=== PATIENT | female | born 1950 | race Caucasian/White ===

== ENCOUNTER → 2020-06-22 | Outpatient (CLI) | payer MEDICARE, OTHER | END | disposition home or self-care (01) | LOC: RAD 11:14 | PROVIDERS: ATTEND Family Medicine | DX: N28.1 Cyst of kidney, acquired (principal); R31.9 Hematuria, unspecified | CPT/HCPCS: 76770 ==

== ENCOUNTER 2020-09-30 12:41 | Outpatient (CLI) | payer MEDICARE, OTHER | END 2020-09-30 23:59 | disposition home or self-care (01) | LOC: CFH 12:41 | PROVIDERS: ATTEND Nurse Practitioner Family | DX: N60.02 Solitary cyst of left breast (principal); N63.21 Unspecified lump in the left breast, upper outer quadrant; N63.14 Unspecified lump in the right breast, lower inner quadrant; R92.2 Inconclusive mammogram; R92.1 Mammographic calcification found on diagnostic imaging of breast | CPT/HCPCS: 76642; 77062; 77066; G0279 ==